=== PATIENT | male | born 1980 | race Caucasian/White ===

== ENCOUNTER 2016-10-31 06:09 | Emergency (ER) | payer OTHER ==
[2016-10-31 06:16] VITALS: BP 150/98; PULSE 84; RESP 16; TEMP 98.3; O2SAT 98
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
--- NOTE | 2016-10-31 08:13 | ED PDOC ---
- ECG O2 Sat by Pulse Oximetry: 98 Medical Decision Making Medical Decision Makin:00 Patient signed out to me by Dr. Billy. Pending CT C-spine 8;10 CT C-Spine is normal. repeat exam revelas no tenderness. nml neuro exam. Upon provider reevaluation patient is feeling better, is medically stable, and requires no further treatment in the ED at this time. Counseling was provided and all questions were answered regarding diagnosis. There is agreement to discharge plan. Return if symptoms persist or worsen. Disposition Counseled Patient/Family Regarding: Studies Performed, Diagnosis - Clinical Impression Clinical Impression: Cervicalgia - POA Present On Arrival: None - Disposition Referrals: [facility] [place] [Outside] (2 to 3 days) Disposition: Routine/Home Disposition Time: 08:10 Condition: GOOD Prescriptions: Naproxen 500 mg PO BID PRN #20 tab PRN Reason: Pain, Moderate (4-7) Instructions: Cervical Strain (DC)
--- NOTE | 2016-10-31 09:11 | CT ---
PROCEDURE: CT Cervical Spine without contrast HISTORY: Evaluate for fracture. COMPARISON: None available. TECHNIQUE: Axial computed tomography images were obtained of the cervical spine without the use of intravenous contrast. Coronal and sagittal reformatted images were created and reviewed. Radiation dose: Total exam DLP = 587.82 mGy-cm. This CT exam was performed using one or more of the following dose reduction techniques: Automated exposure control, adjustment of the mA and/or kV according to patient size, and/or use of iterative reconstruction technique. FINDINGS: VERTEBRAE: No fracture. Normal alignment. No destructive bony lesion. DISCS/SPINAL CANAL/NEURAL FORAMINA: No significant central canal or neural foraminal stenosis. Discs heights are grossly preserved. PARASPINAL SOFT TISSUES: Unremarkable. OTHER FINDINGS: Punctate tonsillar calcifications. Minimally prominent adenoids. Retention cyst versus polyp in the right maxillary sinus. IMPRESSION: No acute fracture. Please note that this report is in general agreement with the preliminary report provided by [facility].
== END 2016-10-31 08:57 | disposition home or self-care (01) ==
LOC: EDBD 06:09 → H.ER 06:09
DX: M54.2 Cervicalgia (principal); V43.52XA Car driver injured in collision with other type car in traffic accident, initial encounter; Y92.410 Unspecified street and highway as the place of occurrence of the external cause